=== PATIENT | female | born 1945 | race Asian ===

== ENCOUNTER 2016-07-10 06:22 | Day surgery (SDC) | payer OTHER ==
[2016-07-09 10:12] VITALS: BMI 22.3
[~2016-07-10 06:22] MED LIST: BSS (NA/CA/MG/K) BALANCED SALT SOLUTION OPHTH SOLN 15 ML BOTTLE OD ONE; CHONDROITIN SU A/HYALUR SOD 1 KIT IO ONE; EPINEPHrine/PF 1 MG/1 ML (1:1,000) AMPULE SQ ONE; LIDOCAINE HCL 1% PRESERVATIVE FREE - 30ML VIAL IO ONE; LIDOCAINE HCL 4% TOPICAL SOLN (50 ML/BOTTLE) TP ONE; POVIDONE-IODINE 5% OPHTHALMIC PREP 30 ML SOLUTION OD ONE
[2016-07-10 06:45] VITALS: TEMP 97.8
[2016-07-10] MEDS: CYCLOPENTOLATE HCL 1% OPHTH SOLN 2 ML BOTTLE ONE ×3 (06:50→07:14)
[2016-07-10] MEDS: PHENYLEPHRINE 2.5% OPHTH SOLN 15 ML BOTTLE ONE ×3 (06:50→07:15)
[2016-07-10] MEDS: CIPROFLOXACIN 0.3% EYE DROPS 5 ML BOTTLE ONE ×3 (06:50→07:13)
[2016-07-10] MEDS: FLURBIPROFEN 0.03% OPHTH SOLN 2.5 ML BOTTLE ONE ×3 (06:50→07:15)
[2016-07-10] MEDS: TROPICAMIDE 1% OPHTH SOLN 15 ML BOTTLE ONE ×3 (06:50→07:16)
[2016-07-10] MEDS ORDERED: EPINEPHrine/PF 1 MG/1 ML (1:1,000) AMPULE ONE (07:29)
[2016-07-10] MEDS ORDERED: LIDOCAINE HCL/PF 1% SDV 5ML VIAL ONE (07:31)
[2016-07-10] MEDS ORDERED: LIDOCAINE HCL 4% PRESERVE-FREE 5 ML AMP ONE (07:31)
[2016-07-10] MEDS ORDERED: POVIDONE-IODINE 5% OPHTHALMIC PREP 30 ML SOLUTION ONE (07:31)
[2016-07-10] MEDS ORDERED: MIDAZOLAM HCL 2 MG/2 ML SINGLE DOSE VIAL ONE (07:55)
[2016-07-10] MEDS ORDERED: LIDOCAINE HCL 4% TOPICAL SOLN (50 ML/BOTTLE) TP ONE (08:23)
[2016-07-10] MEDS ORDERED: POVIDONE-IODINE 5% OPHTHALMIC PREP 30 ML SOLUTION OD ONE (08:25)
[2016-07-10] MEDS ORDERED: EPINEPHrine/PF 1 MG/1 ML (1:1,000) AMPULE SQ ONE (08:30)
[2016-07-10] MEDS ORDERED: BSS (NA/CA/MG/K) BALANCED SALT SOLUTION OPHTH SOLN 15 ML BOTTLE OD ONE (08:30)
[2016-07-10] MEDS ORDERED: CHONDROITIN SU A/HYALUR SOD 1 KIT IO ONE (08:30)
[2016-07-10] MEDS ORDERED: LIDOCAINE HCL 1% PRESERVATIVE FREE - 30ML VIAL IO ONE (08:30)
[2016-07-10] MEDS ORDERED: PHENYLEPHRINE 2.5% OPHTH SOLN 15 ML BOTTLE OP SCH (09:00)
[2016-07-10] MEDS ORDERED: FLURBIPROFEN 0.03% OPHTH SOLN 2.5 ML BOTTLE OP SCH (09:00)
[2016-07-10] MEDS ORDERED: CYCLOPENTOLATE HCL 1% OPHTH SOLN 2 ML BOTTLE OP SCH (09:00)
[2016-07-10] MEDS ORDERED: CIPROFLOXACIN HCL 0.3% OPHTH 2.5ML BOTTLE OP SCH (09:00)
[2016-07-10] MEDS ORDERED: TROPICAMIDE 1% OPHTH SOLN 15 ML BOTTLE OP SCH (09:00)
[2016-07-10 11:33] VITALS: BP 118/69; PULSE 82
--- NOTE | 2016-07-10 13:25 | OP ---
DATE OF OPERATION: 07/10/2016 PREOPERATIVE DIAGNOSIS: Cataract, right eye. POSTOPERATIVE DIAGNOSIS: Cataract, right eye. SURGEON: Lo Rojas M.D. COMMUNICATIONS BILLING ANALYST: None. COMPLICATIONS: None. PROCEDURE: The patient was taken to the operating room and anesthesia began with intravenous fluids and mild sedation. The patient was then prepped and draped in the usual manner for sterile ophthalmic surgery. A speculum was inserted into the right eye. An incision was made in the temporal location at 10 o'clock. A self- sealing incision was also made 180 degrees away. Preservative-free lidocaine followed by Viscoat was then inserted into the anterior chamber. Through the temporal incision, a 360-degree continuous capsulorrhexis was performed. The nucleus was then dislocated with hydrodissection. The nucleus was then removed from the eye with phacoemulsification, the posterior capsule remaining intact. Irrigation and aspiration removed the remaining cortex from the eye. The eye was then polished under Provisc. A posterior chamber lens model [id number] was then inserted through the temporal incision into the bag and well centered. The remaining Viscoat and Provisc were removed from the eye. The wound was then hydrated and well-sealed. The eyelid speculum was then removed from the eye, and the patient went to ambulatory area in stable condition. LO ROJAS M.D. [id number] MTDD
== END 2016-07-10 10:45 | disposition home or self-care (01) ==
LOC: JASU-SURG 06:22
PROVIDERS: ATTEND Ophthalmology
PROC: 08RJ3JZ Replacement of Right Lens with Synthetic Substitute, Percutaneous Approach (ICD-10-PCS; principal; 2016-07-10 08:00)
DX: H26.9 Unspecified cataract (principal)